=== PATIENT | female | born 1945 | race Caucasian/White ===

== ENCOUNTER 2016-08-01 07:24 | Day surgery (SDC) | payer OTHER, MEDICARE ==
[~2016-08-01] VITALS: Ht 154.9 cm; Wt 65.8 kg
[~2016-08-01 07:24] MED LIST: 0.9% Sodium Chloride 1,000 ML IV SCH; CALC60CR3 TOPICAL; CLOB15CR3 TOP; FOLI1TAB18 PO; LOV80 SUBQ; MAGN300C PO; METH2.5T PO; PROC-4 PO; Sodium Chloride LOK Flush 10 mL Syringe IV PRN; WARF5TAB PO; fentaNYL-PF 50 mCg/mL 2 mL Inj IVPUSH PRN
[2016-08-01 07:40] VITALS: BP 118/71; PULSE 84; RESP 16; O2SAT 96
[2016-08-01 08:22] VITALS: BP 129/68; PULSE 78; RESP 14; O2SAT 97
[2016-08-01 08:32] VITALS: BP 120/60; PULSE 72; RESP 12; O2SAT 94
[2016-08-01 08:37] VITALS: BP 122/84; PULSE 83; RESP 14; O2SAT 95
--- NOTE | 2016-08-01 09:04 | ENDO ---
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 POSTOPERATIVE DIAGNOSIS: Normal colonoscopy to cecum. OPERATION: Colonoscopy to cecum. SURGEON: Luiz Hayes MD. INDICATIONS: The patient is a 71-year-old female who on November 07, 2015, had an extended left colectomy and partial omentectomy for what proved to be a stage III colon cancer. She has received chemotherapy. 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 After discussing options with the patient, it was elected to proceed with a colonoscopy. Her warfarin was stopped, and she has been bridged with Lovenox. FINDINGS: She had an excellent prep. The scope was advanced to the cecum with clear visualization of the appendiceal orifice. The scope was withdrawn over 5 minutes. Retroflexed views of the rectum were obtained. The anastomosis was identified, and it was widely patent. There was no evidence of anastomotic recurrence. No polyps were identified. There is no diverticula. Retroflexed views of the rectum were normal. DESCRIPTION OF PROCEDURE: The procedure and sedation plan was discussed with the patient and nursing staff, and a procedural time-out was held. She received 5 mg of Versed and 125 mcg of fentanyl. Digital rectal exam was performed. The Olympus PCF-180AL video colonoscope was passed transanally, advanced to the cecum, withdrawn with as results stated above. IMPRESSION: 1. No evidence of anastomotic recurrence or other intraluminal recurrence of her colon cancer. 2. No colon polyps. PLAN: She is returning to my office this afternoon for removal of her [employer]Port. Results will be discussed with the patient and her at that time.
[2016-09-11] MEDS ORDERED: DIPH25CA6 PO (15:50)
[2016-09-11] MEDS ORDERED: WARF7.5T4 PO (15:50)
[2016-09-11] MEDS ORDERED: PRE20 PO (15:50)
[2016-09-11] MEDS ORDERED: GABA-502 PO (15:51)
== END 2016-08-01 23:59 | disposition home or self-care (01) ==
LOC: END 07:24
PROVIDERS: ATTEND Surgery
DX: Z12.11 Encounter for screening for malignant neoplasm of colon (principal); Z85.038 Personal history of other malignant neoplasm of large intestine; Z90.49 Acquired absence of other specified parts of digestive tract; Z79.01 Long term (current) use of anticoagulants; Z86.718 Personal history of other venous thrombosis and embolism
CPT/HCPCS: G0105; G0500; J2250; J7030